=== PATIENT | female | born 1980 | race Two or more races ===

== ENCOUNTER 2021-03-31 21:25 | Emergency (ER) | payer MEDICAID, OTHER ==
[~2021-03-31] VITALS: Ht 160 cm; Wt 81.6 kg
[2021-03-31 22:25] LABS: Urine Bacteria FEW /hpf (None Seen); Urine Blood Negative /uL (Negative); Urine Specific Gravity 1.009 (1.001-1.035); Urine WBC 2 /hpf (0 - 5)
[2021-03-31 22:29] LABS: Basophils # (auto) 0.1 10 ^3/uL (0-0.2); Basophils % (auto) 0.6 % (0.0-2.0); Eosinophils # (auto) 0.2 10 ^3/uL (0-0.8); Hematocrit 39.3 % (36.0-46.0); Hemoglobin 13.3 g/dL (12.2-16.2); Lymphocytes # (auto) 1.7 10 ^3/uL (0.4-5.4); Lymphocytes % (auto) 20.9 % (10.0-50.0); Mean Corpuscular Hemoglobin 28.1 pg (28.0-32.0); Mean Corpuscular Hgb Conc. 33.9 g/dL (32.0-36.0); Mean Corpuscular Volume 82.8 fL (80.0-100.0); Monocytes # (auto) 0.6 10 ^3/uL (0-1.3); Monocytes % (auto) 7.5 % (0.0-12.0); Neutrophils # (auto) 5.7 10 ^3/uL (1.6-8.6); Nucleated Red Blood Cells % 0.1 %; Red Blood Cells 4.75 10^6/uL (4.0-5.20); Red Cell Distribution Width 16.4 % (11.8-14.3); White Blood Cell 8.3 10^3/uL (4.4-10.8)
[2021-03-31 22:42] LABS: Calcium 8.8 mg/dL (8.5-10.1); Magnesium 2.6 mg/dL (1.6-2.6); Potassium 3.8 mmol/L (3.5-5.1)
[2021-03-31 22:47] LABS: BUN/Creatinine Ratio 16.2; Bilirubin, Total 0.2 mg/dL (0.2-1.0); Total Protein 8.7 g/dL (6.4-8.2)
[2021-04-01 01:48] VITALS: BP 152/82
== END 2021-04-01 02:14 | disposition left against medical advice (07) ==
LOC: ER 21:28
DX: R53.1 Weakness (principal); R11.10 Vomiting, unspecified; Z53.21 Procedure and treatment not carried out due to patient leaving prior to being seen by health care provider
CPT/HCPCS: 36415; 80053; 81001; 81025; 83735; 84443; 84484; 85025